=== PATIENT | female | born 1940 | race African-American/Black ===

== ENCOUNTER 2018-09-25 12:11 | Inpatient (IN) ==
[2018-09-25] MEDS ORDERED: DUONEB (A & A) INH ONE (12:53)
--- NOTE | 2018-09-25 13:05 | PROVIDER DOCUMENTATION ---
HPI-General Adult - General Chief Complaint: Shortness of Breath Stated Complaint: LEGS SWOLLEN Time Seen by Provider: 09/25/18 12:31 Source: patient Allergies/Adverse Reactions: Patient Allergies Allergy/AdvReac Type Severity Reaction Status Date / Time No Known Allergies Allergy Verified 05/13/18 05:39 Home Medications: Home Medication List Medication Instructions Recorded Confirmed Last Taken Type Allopurinol 300 mg PO DAILY 03/22/12 05/13/18 05/12/18 07:30 History Carvedilol 25 mg PO DAILY 03/22/12 05/13/18 05/13/18 04:25 History Potassium Chloride 20 meq PO DAILY 03/22/12 05/05/18 05/12/18 07:30 History Albuterol Sulfate 1.25 mg IH PRN PRN 05/05/18 05/13/18 Unknown History Gabapentin 300 mg PO TID 05/05/18 05/13/18 05/12/18 07:30 History Insulin Glargine [Lantus] 26 unit SUBQ QHS 05/05/18 05/13/18 05/12/18 23:55 History Iron 18 mg PO DAILY 05/05/18 05/05/18 05/12/18 07:30 History Losartan Potassium 100 mg PO DAILY 05/05/18 05/05/18 05/12/18 07:30 History Meloxicam 7.5 mg PO DAILY 05/05/18 05/13/18 05/05/18 History Omeprazole 40 mg PO DAILY 05/05/18 05/05/18 05/12/18 07:30 History ROSUVAstatin [Crestor] 20 mg PO DAILY 05/05/18 05/05/18 05/12/18 07:30 History Torsemide 20 mg PO DAILY 05/05/18 05/05/18 05/12/18 07:30 History Cephalexin [Keflex] 500 mg PO Q8H #20 cap 08/07/18 Unknown Rx Methocarbamol [Robaxin-750] 750 mg PO BID PRN #20 tab 08/07/18 Unknown Rx - History of Present Illness -Gen Adult Nature of Presenting Problems: Patient is an 78 yobf who complains of bilateral lower leg edema and erythema "for a while"- treated with abx last week by pcp with no improvement in symptoms. Also c/o SOB "for a while". Reports productive cough x 2 days. Unknown if fever. Denies chest pain or any other symptoms. She is non-toxic in appearance. Review of Systems - Adult - REVIEW OF SYSTEMS - ADULT Constitutional: reports: no symptoms reported Eyes: reports: no symptoms reported Ears, Nose, Mouth & Throat: reports: no symptoms reported Cardiovascular: reports: see HPI, edema. denies: chest pain, palpitations, syncope Respiratory: reports: see HPI, cough, dyspnea on exertion, shortness of breath. denies: chronic cough, hemoptysis Gastrointestinal: reports: no symptoms reported. denies: abdominal pain, diarrhea, nausea, vomiting Genitourinary: reports: no symptoms reported Musculoskeletal: reports: no symptoms reported Integumentary: reports: see HPI, other (erythema- bilateral lower extremities) Neurological: reports: no symptoms reported Psychiatric: reports: no symptoms reported Endocrine: reports: no symptoms reported Hematologic/Lymphatic: reports: no symptoms reported Allergic/Immunologic: reports: no symptoms reported All Other Systems: Reviewed and Negative Past History - Adult - PAST MEDICAL HISTORY-ADULT Review of Records: reports: Nursing Assessment Review, Medications Reviewed, Social history reviewed & non-contributory. Major Childhood Illnesses: reports: denies history Cardiovascular: reports: HTN, hyperlipidemia Respiratory: reports: asthma Obstetrical/Gynecological: reports: denies history Genitourinary: reports: denies history Neurological: reports: denies history Endocrine/Immune: reports: Diabetes Diabetes controlled by:: Insulin Dependent - PRIOR SURGERIES/PROCEDURES Surgical/Procedure History: reports: reviewed, not pertinent - FAMILY HISTORY Family History: reviewed, not pertinent - SOCIAL HISTORY Smoking: quit greater than 1 year Physical Exam-General - PHYSICAL EXAM-ADULT Initial Vital Signs Reviewed: Yes - CONSTITUTIONAL General Appearance: alert, no apparent distress. negative: lethargic, slow to respond - EYES Eyes: PERRL/EOMI, pink conjunctivae - HEAD, EARS, NOSE, MOUTH & THROAT HENMT: normocephalic/atraumatic, moist mucous membranes - NECK Neck: non-tender, full range of motion, supple, normal inspection - RESPIRATORY Respiratory: chest non-tender, no pleuratic chest pain, no respiratory distress, no accessory muscle use, wheezing (Diffuse expiratory) - CARDIOVASCULAR Cardiovascular: normal peripheral pulses, regular rate, rhythm, no gallop, no murmur, other (3+ pitting edema noted to bilateral lower extremities) - GASTROINTESTINAL (ABDOMEN) Abdominal Exam: normal bowel sounds, non tender, soft - MUSCULOSKELETAL Back Exam: normal inspection Extremity: normal range of motion, no calf tenderness, pelvis stable, erythema ( Bilateral lower legs), pedal edema. negative: pulse deficit, slow capillary refill - SKIN Integumentary: normal color, warm/dry. negative: cyanosis, diaphoresis, jaundice, mottled, pallor - NEUROLOGIC Neurologic: grossly normal, no motor/sensory deficits - PSYCHIATRIC Psych/Mental Status: normal mood/affect, normal thought content, normal thought process, oriented x 3 Progress - PLAN OF CARE/RESULTS Progress/Plan/Lab Results: Vital Signs - 8 hr 09/25/18 12:23 Temperature 97.9 F Pulse Rate 134 H Respiratory Rate 18 Blood Pressure 122/63 O2 Sat by Pulse Oximetry 96 Orders Category Date Time Status Cardiac Monitoring DIRECTED Care 09/25/18 12:52 Active Cardiac Monitoring DIRECTED Care 09/25/18 12:53 Active IV Insertion ORDERED Care 09/25/18 12:52 Active Notify MD of + Sepsis Screen NOW Care 09/25/18 12:52 Active Notify Physician As Ordered Care 09/25/18 12:52 Active CHEST-1 VIEW [RAD] Stat Exams 09/25/18 12:53 Ordered BLOOD CULTURE [BLDCUL] Stat Lab 09/25/18 12:52 Uncollected CBC WITH DIFF [HEME] Stat Lab 09/25/18 12:52 Uncollected CK PROFILE [SP CHEM] Stat Lab 09/25/18 12:52 Uncollected COMPREHENSIVE METABOLIC PANEL [CHEM] Stat Lab 09/25/18 12:52 Uncollected LACTATE, PLASMA [CHEM] Q3H Lab 09/25/18 13:00 Uncollected LACTATE, PLASMA [CHEM] Q3H Lab 09/25/18 16:00 Uncollected LACTATE, PLASMA [CHEM] Q3H Lab 09/25/18 19:00 Uncollected MAGNESIUM [CHEM] Stat Lab 09/25/18 12:52 Uncollected PRO B-NATRIURETIC PEPTIDE Stat Lab 09/25/18 12:53 Uncollected PROTIME WITH INR [COAG] Stat Lab 09/25/18 12:52 Uncollected PTT [COAG] Stat Lab 09/25/18 12:52 Uncollected TROPONIN T Stat Lab 09/25/18 12:52 Uncollected URINALYSIS W/POSS RFLX CULT [URINALYSIS] Stat Lab 09/25/18 12:52 Uncollected Albuterol 2.5MG/Ipratrop 0.5MG [Duoneb (A & A)] Med 09/25/18 12:53 Discontinued 3 ml INH NOW ONE Aerosol Treatments Routine Oth 09/25/18 12:53 Active Aerosol Treatments Stat Oth 09/25/18 12:53 Active Oxygen Device Stat Oth 09/25/18 12:52 Active EKG [EKG] Stat Ther 09/25/18 12:53 Ordered 1452- Dr. Bush paged. Pt states she is feeling moderately better after DuoNeb. Spoke with Dr. Bush who is aware of admission plan and is in agreement- md has no further recommendations. 1456- Admitting HPS paged. Pt in agreement with admission plan Result Diagrams: 09/25/18 13:24 09/25/18 13:24 - EKG 1 Time of EKG reading by physician:: 12:33 EKG Read and Signed by:: Samuel Li EKG Interpretation (*Must complete 3 of following elements*): Normal Rate: 84 Rhythm: NSR QRS: normal ST Wave: normal - XRAY 1 XRAY Study: Chest (IMPRESSION: Negative exam. Electronically signed by Hakan Pedersen 09/25/2018 1:20 PM) - CONSULTS/PCP/HOSPITALIST Notification #1 *Consult/PCP/Hospitalist*: FREDERIC Benjamin [employer] PROGRAMMER Time Discussed: 15:03 Reason/Comments: admission- SOB, elevated d-dimer Consult Disposition: Admit Departure - Departure Date of Disposition Decision: 09/25/18 Time of Disposition Decision: 15:05 DIAGNOSIS: SOB (shortness of breath), Elevated d-dimer Disposition: ADMITTED INPATIENT 09 Certified Medical Emergency: Emergent Condition: Serious Referrals and Follow-Ups: Mahnaz Cummings CRNP [NON-STAFF PROVIDER] - - Critical Care Note This patient required my direct & personal management of CC.: No Attestation - Physician/ KIM Attestation Patient care was provided by Advanced Practice Provider:: Yes Advanced Practice Provider:: Rani Perdomo Advanced Practice Provider documentation review:: The Mid-level provider documentation, treatment plan and medical decision making was reviewed by the physician who agrees with all treatment and medical decision making by the MLP. The physician spent face to face time with patient:: No Advanced Practice Provider documentation review:: Supervising physician onsite and consulted in the evaluation and care of this patient. The physician did not have a face to face encounter with the patient.
--- NOTE | 2018-09-25 13:22 | Diag Imaging Result Doc PS360 ---
CHEST-1 VIEW - 09/25/2018 INDICATION: cough, SOB COMPARISON: 08/07/2018 FINDINGS: The lungs are normally expanded and clear. Heart size and mediastinal contours are normal. No pneumothorax or pleural effusion. IMPRESSION: Negative exam. Electronically signed by Hakan Pedersen 09/25/2018 1:20 PM
--- NOTE | 2018-09-25 13:37 | EKG Report ---
Test Performed on : 09/25/2018 12:30:17 PM Test Reason : SOB Blood Pressure : / mmHG Vent. Rate : 084 BPM Atrial Rate : 084 BPM P-R Int : 194 ms QRS Dur : 068 ms QT Int : 402 ms P-R-T Axes : 065 027 056 degrees QTc Int : 475 ms Normal sinus rhythm. Normal ECG When compared with ECG of 05-MAY-2018 11:29, No significant change was found Unconfirmed Result
[2018-09-25 13:50] LABS: BASO# 0.01 X1000 (0.0-0.2); BASO% 0.1 % (0.0-0.8); EOS# 0.25 X1000 (0.0-0.7); HEMATOCRIT 34.5 % (37.0-47.0); HEMOGLOBIN 10.4 g/dL (12.0-16.0); IMM GRAN# 0.02 X1000 (0.0-0.04); IMM GRAN% 0.2 % (0.0-0.5); LYMPH# 1.62 X1000 (1.2-3.4); LYMPH% 19.7 % (20.5-51.1); MCH 27.2 PG (27-31); MCHC 30.1 g/dL (33-37); MCV 90.3 FL (81-99); MONO# 0.48 X1000 (0.11-0.59); MONO% 5.8 % (1.7-9.3); MPV 9.2 FL (7.4-10.4); NEUT# 5.83 X1000 (1.4-6.5); NEUT% 71.2 % (42.2-75.2); PLT 255 X1000 (130-400); RBC 3.82 XMIL (4.2-5.4); RDW 15.7 % (11.5-14.5); WBC 8.21 X1000 (4.8-10.8)
[2018-09-25 13:56] LABS: INR 1.09; PTT 32.1 Seconds (22.3-41.8)
[2018-09-25 14:15] LABS: ALB/GLOB RATIO 1.1; ALBUMIN 3.4 g/dL (3.5-5.0); CALCIUM 8.4 mg/dL (8.8-10.2); MAGNESIUM 2.2 mg/dL (1.5-2.7); POTASSIUM 4.4 mmol/L (3.5-5.1); TOTAL BILIRUBIN 0.33 mg/dL (0.20-1.00); TOTAL PROTEIN 6.5 g/dL (6.3-8.3)
[2018-09-25 14:39] LABS: URINE SOURCE CLEAN CATCH
[2018-09-25 14:41] LABS: BILIRUBIN URINE NEGATIVE (NEGATIVE); BLOOD URINE NEGATIVE (NEGATIVE); COLOR STRAW; GLUCOSE URINE NEGATIVE (NEGATIVE); KETONE URINE NEGATIVE (NEGATIVE); LEUKOCYTES URINE TRACE (NEGATIVE); NITRITE URINE NEGATIVE (NEGATIVE); PH URINE 5.5; PROTEIN URINE TRACE mg/dL (NEGATIVE); TURBIDITY URINE CLEAR (CLEAR); UR EPITHELIAL CELLS <10 /HPF (<10); URINE BACTERIA NEGATIVE /HPF; URINE RBC <10 /HPF (<10); URINE WBC <10 /HPF (<10); UROBILINOGEN URINE NORMAL (NORMAL)
[2018-09-25] MEDS ORDERED: CLINDAMYCIN 600 MG/NS 600 MG/50 ML IVPB IV ONE (14:55)
[2018-09-25 15:37] LABS: BLOOD TYPE ARTERIAL; HCO3-(ACT) 27.6 mmoll (20.0-26.0); PO2(98.6) 56 mmHg (60-100); SAMPLE BLOOD; pH(98.6) 7.38 (7.35-7.45)
[2018-09-25 15:38] LABS: ALLEN TEST YES; BE 3.8 mmoll (-3.0-3.0); METHB 0.9 % (0.0-1.5); O2(CT) 18.8 mL/dL (15.0-23.0); SAO2 90.3 % (95.0-100.0); THB 15.2 g/dL (11.5-17.4)
[2018-09-25 15:40] LABS: MODALITY ROOM AIR; O2HB 88.1 % (95.0-99.0); PCO2(98.6) 51 mmHg (35-45)
[2018-09-25] MEDS ORDERED: SOLU-MEDROL IV ONE (15:47)
[2018-09-25] MEDS ORDERED: TYLENOL PO PRN (16:04)
[2018-09-25] MEDS ORDERED: ZOFRAN IV PRN (16:04)
[2018-09-25] MEDS: HUMULIN R SUBQ SCH ×2 (16:04→22:29)
[2018-09-25] MEDS: ROCEPHIN 1 GM in NS 50 ML IV SCH (16:43)
--- NOTE | 2018-09-25 17:48 | Diag Imaging Result Doc PS360 ---
EXAM: LUNG SCAN / VQ 09/25/2018 HISTORY: SOB, elevated d-dimer TECHNIQUE: Ventilation/perfusion lung scan, 41.7 mCi of technetium 99m DTPA aerosol for the ventilation portion and 6.2 mCi of technetium 99m MAA for the perfusion portion. COMMENT: There is no evidence of ventilation/perfusion mismatch. There is no evidence of absolute perfusion defect. IMPRESSION: Normal scan. Electronically signed by Hao Baker 09/25/2018 5:46 PM
[2018-09-25] MEDS ORDERED: VANCOMYCIN IV PER PHARMACY MISC SCH (18:00)
--- NOTE | 2018-09-25 19:10 | HISTORY AND PHYSICAL ---
PRIMARY CARE PROVIDER: Dr. Bush. CHIEF COMPLAINT: Shortness of breath and lower extremity pain and swelling. HISTORY OF PRESENT ILLNESS: Ms. Yas Alvarez is an 78-year-old female with a medical history of diabetes mellitus type 2, hypertension, asthma, gout, and possibly congestive heart failure - she did not mention it, but she does have a normal systolic ejection fraction of 70% to 75% with hyperdynamic left ventricular systolic function and mild LVH. She has some mild pulmonary hypertension with a pulmonic pressure of 46 mmHg systolic and this was 10/03/2017. She now presents with having several months of shortness of breath. Apparently after a coughing spell this morning it has worsened. She was wheezing. She presented to Dr. Bush's office, who has been treating her for bilateral lower extremity cellulitis over the last two weeks. Apparently the cellulitis has also been going on for about six months, according to her, with more swelling and worsened over the last two weeks. He ordered a bilateral lower extremity venous ultrasound and report from him to the ER care provider there was no DVT. She had a VQ scan due to chronic kidney disease that she has, which was negative for any type of pulmonary emboli, but she is requiring oxygen and she has a history of asthma, so will admit her and consult Pulmonology. Start her on nebulizers and treat her as if it was a COPD exacerbation. Apparently she did smoke quite a bit since the age of 10, but she claims to have quit over 20 years ago. PAST MEDICAL HISTORY: 1. Diabetes mellitus type 2. 2. Hypertension. 3. Asthma. 4. CKD, stage 3. 5. Mild pulmonary hypertension, per echo from last year, September 2017, with a pulmonary systolic reading of 46 mmHg. 6. Gout. 7. Neuropathy. PAST SURGICAL HISTORY: 1. Bilateral tubal ligation. 2. Sinus surgery. 3. Colonoscopy in 2017. 4. Left breast lumpectomy. SOCIAL HISTORY: Quit smoking over 20 years ago but prior to that smoked less than a half pack per day and she actually started smoking around the age of 10. Apparently, her father would let her light his cigarettes for him. She quit alcohol over 20 years ago as well. Denies any illicit drug use. FAMILY HISTORY: No medical history on mother's side. Hypertension and poor perfusion or circulation in the legs of her father. ALLERGIES: No known drug allergies. HOME MEDICATIONS: 1. Lantus 26 units subcutaneously nightly. 2. Albuterol inhaled p.r.n. 3. Allopurinol 300 mg p.o. daily. 4. Coreg 25 mg p.o. twice daily. 5. Neurontin 300 mg p.o. t.i.d. 6. Insulin Lispro 10 units subcutaneously twice a day. 7. Losartan 100 mg p.o. daily. 8. Carafate 1 gram p.o. before meals and at night. 9. Torsemide 20 mg daily. REVIEW OF SYSTEMS: A 14-point review of systems are complete and all are negative except for those mentioned in the above HPI. PHYSICAL EXAMINATION: VITAL SIGNS: Temperature 97.9, heart rate 81, respiratory rate 22, blood pressure 123/70, 02 saturation 96% on 2L nasal cannula. GENERAL: Ms. Yas Alvarez is an 78-year-old female. She is in no acute distress. She is able to answer questions appropriately. HEENT: Atraumatic, normocephalic. Pupils equal, round, and reactive to light. Extraocular movements intact. Mucous membranes are moist. NECK: Trachea midline. CARDIOVASCULAR: S1 and S2, regular rate and rhythm. No rubs, gallops, or murmurs. Trace lower extremity edema, +2 dorsalis and radial pulses. Negative for JVD or carotid bruits. PULMONARY: Mild expiratory wheezes noted throughout but no accessory muscle use or work of breathing noted at this time, but she states this is quite improved from when she first came in. Tolerating nasal cannula, two liters. GI: Soft, nontender, nondistended. Positive bowel sounds x4. EXTREMITIES: Moves all extremities equally. Decreased range of motion of the lower extremities. SKIN: Warm, dry and intact except for bilateral lower extremities below the knee down to the lower stallings, no open wounds but appears she has bilateral lower extremity cellulitis possibly. It is red and warm to touch and painful. LABORATORY DATA: White blood cells 8000, hemoglobin 10, hematocrit 34, platelet count 255. INR is 1.09. PTT 32.1. D dimer is 2.11. ABGs: pH 7.38, pCO2 51, pO2 56, bicarb 26, base excess 3.8, saturation 90% on room air. Lactate 0.9. Sodium 143, potassium 4.4, BUN 20, creatinine 2.0, glucose 94. Calcium 8.4, magnesium 2.2, bilirubin 0.33. AST 15, ALT 6. CK 122. Troponin 0.031. proBNP 343. Albumin 3.4. Serum lactate 0.9. Urinalysis: Trace protein, trace leukocytes. IMAGING: Chest x-ray: Negative exam. Lung VQ scan: Normal scan. There was no mismatch or pulmonary emboli. EKG shows normal sinus rhythm, rate 84, QTc is 475. ASSESSMENT/PLAN: 1. Hypoxemic, hypercarbic respiratory failure. Likely she has chronic obstructive pulmonary disease and this is a mild exacerbation. So, will treat her chronic obstructive pulmonary disease protocol order set. She will get bronchodilators, steroids, and antibiotic for coverage - will do Rocephin. Oxygen as needed. She is requiring about two liters at this time and she feels like she is breathing better. 2. Chronic lower extremity either venous stasis or cellulitis, but it has been going on for six months, according to her. It has just worsened over the last two weeks. She has been treated by Dr. Bush for it. She was given clindamycin in the emergency room. Will just do vancomycin until blood cultures come back or until the cellulitis improves. 3. There is elevated D dimer but she is negative for deep venous thrombosis and negative for pulmonary emboli. 4. Chronic kidney disease, stage 3. Maybe a little acute kidney, the creatinine is up from 1.5 to 2.0 over the last month. Will monitor it. 5. Pulmonary hypertension. She is getting a new echo performed this admission. So, she is on torsemide at home. She is also on Coreg, which we will continue. 6. Deep venous thrombosis prophylaxis. Will hold off on any blood thinners now. 7. Diabetes mellitus, type 2. Will do patterned blood glucoses and sliding scale insulin. 8. Gout. Continue her Allopurinol. 9. Neuropathy. Continue Neurontin. Dictated by JESSICA Qiuntero for Martell Khanna MD cc: JESSICA Quintero MD
[2018-09-25] MEDS: PULMICORT INH SCH (19:45)
[2018-09-25] MEDS: DUONEB (A & A) INH SCH ×2 (19:45→23:40)
[2018-09-25] MEDS ORDERED: VANCOMYCIN 2,000 MG in NS 500 ML IV ONE (20:00)
--- NOTE | 2018-09-25 20:58 | Diag Imaging Result Doc PS360 ---
EXAM: CT THORAX W/O CONTRAST 09/25/2018 HISTORY: Dyspnea with hypoxemia TECHNIQUE: This exam was performed using automated exposure control, adjustment of mA or kV according to patient size, and/or use of iterative reconstruction technique. COMMENT: The thyroid gland is inhomogeneous and extends below the sternal notch. There are atherosclerotic calcifications in the thoracic aorta. There is no evidence of significant adenopathy. There are granulomata in the spleen. There is enlargement of the left adrenal gland which contains some calcifications. There are bilateral renal cysts. There are no abnormal fluid collections. There is some ill-defined opacity in the lower lobes particularly the posterior costophrenic sulcus of the right lower lobe. IMPRESSION: Minimal atelectasis versus pneumonia particularly in the right lower lobe. Electronically signed by Hao Baker 09/25/2018 8:56 PM
[2018-09-25] MEDS: SOLU-MEDROL IV SCH (22:27)
[2018-09-25] MEDS: LASIX IV SCH (22:28)
[2018-09-25] MEDS: COREG PO SCH (22:28)
[2018-09-25] MEDS: LANTUS INSULIN SUBQ SCH (22:28)
[2018-09-25] MEDS: CARAFATE PO SCH (22:29)
--- NOTE | 2018-09-26 00:32 | HISTORY AND PHYSICAL ---
ADDENDUM: HISTORY: Ms. Yas Alvarez was referred here by her primary care doctor (Dr. Bush) because of ongoing lower extremity swelling and progressively worsening shortness of breath. Ms. Alvarez is known to have diabetes, hypertension, diabetic neuropathy, and suspected obstructive sleep apnea from her history as well. Upon presenting to the emergency department, she was evaluated. She was found to be slightly hypoxemic. CURRENT PHYSICAL EXAMINATION: Blood pressure is 146/73, pulse of 80, respiration is 16, temperature is 98.5 degrees. Positive on her physical exam is lower extremities have about 3+ pedal edema. There are some changes that are consistent with stasis dermatopathy. The patient also has positive hepatojugular reflux. There is positive JVD. Chest air entry is bilaterally reduced. There are diffuse crackles, but I did not hear any rhonchi or wheezing. LABORATORIES: Laboratory data has also been reviewed. Hemoglobin is 10.4. ABG shows pCO2 of 51, pO2 is 56; this was on room air. Creatinine is 2.0. The patient seems to have a baseline of 1.5. Her proBNP is 343. ASSESSMENT: 1. Fluid overload, presumably heart failure. It appears to be more of a right heart failure. We will be pending the echocardiogram to assess the EF. 2. Acute hypoxemic respiratory failure and acute on chronic hypercarbic respiratory failure. We will use BiPAP on Ms. Alvarez mainly at night to help correct some of the gas exchange as well as ventilatory abnormalities. 3. Acute on chronic renal failure. We will try and diurese Ms. Alvarez to see if this is all related to cardiorenal syndrome. Will also avoid any nephrotoxins 4. Morbid obesity with body mass index of 40.9. 5. History of asthma. However, upon talking with Ms. Alvarez, it appears that this is actually a chronic obstructive pulmonary disease in possible exacerbation. The patient is being treated accordingly. 6. Suspected sleep apnea with obesity hypoventilation syndrome. The patient is advised to follow up with Pulmonary Medicine on an outpatient basis for sleep studies and treatment accordingly. PLAN: Ms. Alvarez will be admitted to the medical floor under telemonitoring. We will get a CT scan of the lungs without contrast to have a better view of the lung anatomy. We will also start her on IV Lasix and re-evaluate her in the morning. I will restart her back on her home medications and repeat her numbers for tomorrow. Please refer to the details of the history and physical that has been dictated by the CRIBBING SETTER. cc: Martell Khanna MD MTDD
[2018-09-26] MEDS: DUONEB (A & A) INH SCH ×6 (03:18→20:06)
[2018-09-26 05:17] LABS: ALLEN TEST YES; BE 0.9 mmoll (-3.0-3.0); BLOOD TYPE ARTERIAL; HCO3-(ACT) 25.5 mmoll (20.0-26.0); METHB 0.8 % (0.0-1.5); O2(CT) 14.3 mL/dL (15.0-23.0); O2HB 90.5 % (95.0-99.0); PCO2(98.6) 46 mmHg (35-45); PO2(98.6) 57 mmHg (60-100); SAMPLE BLOOD; SAO2 92.5 % (95.0-100.0); THB 11.2 g/dL (11.5-17.4); pH(98.6) 7.37 (7.35-7.45)
[2018-09-26 05:18] LABS: MODALITY CANNULA
[2018-09-26] MEDS: HUMULIN R SUBQ SCH ×4 (06:12→21:35)
[2018-09-26] MEDS: SOLU-MEDROL IV SCH ×2 (06:12→11:53)
[2018-09-26] MEDS: CARAFATE PO SCH ×4 (06:13→21:37)
[2018-09-26 08:02] LABS: HEMATOCRIT 34.3 % (37.0-47.0); HEMOGLOBIN 10.5 g/dL (12.0-16.0); IMM GRAN# 0.02 X1000 (0.0-0.04); IMM GRAN% 0.3 % (0.0-0.5); LYMPH# 0.71 X1000 (1.2-3.4); LYMPH% 9.4 % (20.5-51.1); MCH 27.4 PG (27-31); MCHC 30.6 g/dL (33-37); MCV 89.6 FL (81-99); MONO# 0.04 X1000 (0.11-0.59); MONO% 0.5 % (1.7-9.3); MPV 9.8 FL (7.4-10.4); NEUT# 6.77 X1000 (1.4-6.5); NEUT% 89.8 % (42.2-75.2); PLT 264 X1000 (130-400); RBC 3.83 XMIL (4.2-5.4); RDW 15.2 % (11.5-14.5); WBC 7.54 X1000 (4.8-10.8)
[2018-09-26 08:04] LABS: IRON SATURATION 14 %; TIBC 204 ug/dL; TOTAL IRON 28 ug/dL (49-151); UNBOUND IRON 176 ug/dL (112-346)
[2018-09-26 08:09] LABS: ALB/GLOB RATIO 0.9; ALBUMIN 3.4 g/dL (3.5-5.0); CREATININE 1.9 mg/dL (0.5-0.9); POTASSIUM 3.9 mmol/L (3.5-5.1); TOTAL BILIRUBIN 0.28 mg/dL (0.20-1.00)
[2018-09-26] MEDS: PULMICORT INH SCH ×2 (08:11→20:06)
[2018-09-26 08:20] LABS: BANDS 2 % (0-1); LYMPHS 10 % (21-51); SEGS 88 % (42-75)
[2018-09-26 08:34] LABS: FERRITIN 405 ng/mL (13-150)
[2018-09-26] MEDS ORDERED: DEMADEX PO SCH (09:00)
[2018-09-26] MEDS: COREG PO SCH ×2 (09:09→21:37)
[2018-09-26] MEDS: ZYLOPRIM PO SCH (09:09)
[2018-09-26] MEDS: COZAAR PO SCH (09:09)
[2018-09-26] MEDS: NEURONTIN PO SCH ×3 (09:10→21:37)
[2018-09-26] MEDS: LASIX IV SCH ×2 (09:10→21:37)
--- NOTE | 2018-09-26 13:13 | PROGRESS NOTE ---
DATE: 09/26/2018 SUBJECTIVE: The patient this morning was sitting up at the edge of the bed. She was taking her meals. She refers to be feeling a lot better. OBJECTIVE: Vital signs: Blood pressure is 158/67, pulse 88, respirations 16 and temperature 97.5 degrees. Patient was saturating 100% on 2 L. General: Ms. Alvarez is an 78-year-old female. She was sitting up at the edge of the bed in no distress. HEENT: Mucosa is pink and moist. Anicteric. Acyanotic. Neck: Supple. There is still positive JVD. Chest: Air entry is bilaterally reduced. A few crackles posteriorly but no wheezing. Cardiovascular: Regular rate and rhythm. No murmurs. Abdomen: Soft and nontender. Bowel sounds present. Extremities: About 2+ pedal edema. RADAR MECHANIC: Patient is awake, alert, and oriented. There is no focal neurological deficit. LABORATORY DATA: WBC is 7.58, hemoglobin is 10.5, and platelet count of 265,000. ABG- pH 7.37, pCO2 is 46, and PO2 is 57. Creatinine is down to 1.9. No urine output has been charted. MEDICATIONS: Patient's current medicines have all been reviewed. So far, urine culture is negative. Blood culture still pending. ASSESSMENT: 1. Fluid overload, presumably from congestive heart failure with preserved ejection fraction/predominantly right heart failure. We are still pending an echocardiogram. 2. Acute hypoxemic respiratory failure improving. 3. Acute on chronic hypercarbic respiratory failure improved. 4. Acute on chronic renal failure. Creatinine is on downward trend. 5. Possible COPD/asthma exacerbation. 6. Suspected obstructive sleep apnea with obesity hypoventilation syndrome. 7. Right lower lobe pneumonia. Patient is on IV antibiotics. In general, Ms. Alvarez refers to be feeling a lot better. Congestive symptoms are improving. We are still pending echocardiogram. A CT scan of the chest yesterday shows some minimal atelectasis versus pneumonia in the right lower lobe. Patient has been currently treated for pneumonia, and also COPD exacerbation on antibiotics. We will continue with the current management for another 24 hours and re- evaluate her. cc: MD HUEY Woodruff
--- NOTE | 2018-09-26 14:47 | ECHO REPORT ---
ORDER DATE: 09/25/2018 INDICATION: Shortness of breath. Lower extremity swelling. FINDINGS: This is a very difficult study with poor resolution of the endocardial borders. 1. The right atrium appears normal in size. 2. Trace tricuspid regurgitation. RV systolic pressure of 60 suggesting pulmonary hypertension. 3. Normal RV systolic function. Very poor visualization of the right heart. 4. No significant pulmonic insufficiency. 5. Normal left atrial size with a dimension of 3.2 cm. 6. No mitral valve prolapse. Trace mitral regurgitation. 7. Normal LV size, end-diastolic dimension of 3.7. Normal wall thicknesses with a posterior and interventricular septal thickness of 1.1 and 0.9 cm respectively. Hyperdynamic LV systolic function with an estimated EF greater than 70%. On Valsalva though, there does appear to be some evidence of an increased LV outflow tract gradient of 73 mmHg. Due to the poor 2- dimensional images, it is very difficult to evaluate the left ventricular outflow tract with 2- dimensional images. In addition, I was unable to see if there is any systolic anterior motion of the mitral leaflets. 8. The aortic valve does not appear to have any significant stenosis or insufficiency based on Doppler evaluation. There are poor 2-dimensional images of the aortic valve. 9. The aorta appears normal in visualized segments. 10. No pericardial effusion seen. cc: MD Cassidy Dan CRNP
[2018-09-26] MEDS: ROCEPHIN 1 GM in NS 50 ML IV SCH (16:22)
[2018-09-26] MEDS: LANTUS INSULIN SUBQ SCH (21:36)
--- NOTE | 2018-09-26 22:59 | CONSULTATION ---
DATE OF CONSULTATION: 09/26/2018 REQUESTING PROVIDER: JESSICA Quintero. REASON FOR CONSULTATION: Hypoxic hypercapnic respiratory failure. HISTORY OF PRESENT ILLNESS: This is an 78-year-old female with a medical history of morbid obesity, asthma, pulmonary hypertension, hypertension, diabetes mellitus type 2, chronic kidney disease, gastroesophageal reflux disease, arthritis, neuropathy, and polymyalgia rheumatica. She presented to the ER yesterday with worsening shortness of breath and bilateral lower extremity edema for several months. Initial workup in the ER revealed hypoxic hypercapnic respiratory failure, chronic lower extremity venous stasis versus cellulitis, and elevated D-dimer. She has been admitted to the medical floor for further evaluation and management. The patient currently is lying in bed in no acute distress. She appears sleepy and keeps her eyes closed most of the time during my assessment. She states that she has been treated with cellulitis by her PCP for 2 weeks. She reports worsening dyspnea on exertion, and wheezing. It gets so severe that she even cannot take a shower. She also has intermittent mild cough, which is dry most of time, but becomes productive in the last 2 days with clear phlegm. She reports witnessed snoring, daytime sleepiness, and tiredness. She reports no fever, morning headache, insomnia, paroxysmal nocturnal dyspnea, chest pain, or palpitation. PAST MEDICAL AND SURGICAL HISTORY: 1. Morbid obesity. Current BMI 40.9. 2. Asthma. 3. Pulmonary hypertension. 4. Hypertension. 5. Diabetes mellitus type 2. 6. Chronic kidney disease stage 3. 7. Gastroesophageal reflux disease. 8. Arthritis. 9. Neuropathy. 10. Polymyalgia rheumatica, status post left temporal artery biopsy on 05/13/2018. 11. Bilateral tubal ligation. 12. Sinus surgery. 13. Colonoscopy and colon polyp removal. 14. Bilateral cataract surgery. 15. Left breast biopsy on 09/16/2012. SOCIAL HISTORY: The patient lives at home with her family. She walks with a cane or walker at home. She was a former smoker, starting smoking at 38-year-old and quit over 20 years ago. She used to smoke maximally up to 2.5 packs per day. She has no alcohol or illicit drug use. FAMILY HISTORY: Positive for hypertension. ALLERGIES: No known drug allergies. REVIEW OF SYSTEMS: A 10-point review of systems was conducted and the pertinent is listed within the HPI, otherwise noncontributory. PHYSICAL EXAMINATION: Vital Signs: Temperature 97.5 degrees, blood pressure 151/79, pulse 90, respiratory rate 14, oxygen saturation 91% on nasal cannula at 2 L. General: Morbidly obese, sleepy, lying in bed with no acute distress noted. HEENT: Atraumatic. Trachea Midline. Mucosa pink and moist. Respiratory: Even and unlabored, symmetrical excursion. Auscultation reveals diminished breathing sounds bibasilarly. Otherwise clear. No wheezing noted. Cardiovascular: Regular rate and rhythm. Gastrointestinal: Bowel sounds normoactive in all 4 quadrants. Soft, nontender, and obese. Extremities: Bilateral lower extremity discoloration, warm and painful on touch with pitting edema 1+. No clubbing, no cyanosis. Neurologic: Alert and oriented x3. Speech fluent. Follows commands. LAB DATA: White blood cells 7.52, hemoglobin 10.5, hematocrit 34.3, platelet 264,000. Sodium 139, potassium 3.9, chloride 99, carbon dioxide 27, BUN 23, creatinine 1.9. Glucose 233. ProBNP 554. ABG, pH 7.37, pCO2 of 46, PO2 of 57, HCO3 of 25.5, base excess 0.9, and oxyhemoglobin 90.5. IMAGING DATA: Chest CT without contrast on 09/25/2018 showed minimal atelectasis versus pneumonia, particularly in the right lower lobe. ASSESSMENT: This is an 78-year-old female with a medical history of morbid obesity, asthma, pulmonary hypertension, hypertension, diabetes mellitus type 2, chronic kidney disease, gastroesophageal reflux disease, arthritis, neuropathy, and polymyalgia rheumatica. She has been admitted to the medical floor with hypoxic hypercapnic respiratory failure, chronic lower extremity venous stasis versus cellulitis, and elevated D-dimer. 1. Acute hypoxic respiratory failure, currently on nasal cannula at 2 L. PO2 this morning still low at 57. 2. Acute hypercapnic respiratory failure, improving. PCO2 this morning of 46. The patient states that she did not use BiPAP last night. 3. Minimal atelectasis versus pneumonia. 4. Morbid obesity. 5. Probable sleep apnea. 6. Probable chronic obstructive pulmonary disease with exacerbation. 7. Elevated D-dimer. Ventilation/perfusion lung scan to rule out pulmonary embolism on 09/25/2018. 8. Acute on chronic kidney disease. 9. Bilateral lower extremity chronic venous stasis versus cellulitis. PLAN: 1. Continue supplemental oxygen as needed, continue BiPAP as needed. 2. Continue antibiotics, steroids, and bronchodilators. 3. The patient would benefit from weight loss. 4. Will follow up the patient after discharge and schedule outpatient sleep study at that time. 5. Continue GI and DVT prophylaxis. 6. Further recommendation pending hospital course. Thank you for the courtesy of this consult. Dictated by JESSICA Schaeffer for Greg Mccain MD cc: JESSICA Schaeffer MD [facility]
[2018-09-27] MEDS: SOLU-MEDROL IV SCH ×2 (00:41→16:53)
[2018-09-27] MEDS: DUONEB (A & A) INH SCH ×6 (04:08→23:43)
[2018-09-27] MEDS: HUMULIN R SUBQ SCH ×4 (06:14→21:21)
[2018-09-27] MEDS: CARAFATE PO SCH ×4 (06:14→21:22)
[2018-09-27] MEDS: PULMICORT INH SCH ×2 (07:55→20:08)
[2018-09-27 08:00] LABS: ALBUMIN 3.4 g/dL (3.5-5.0); MAGNESIUM 2.1 mg/dL (1.5-2.7); POTASSIUM 3.9 mmol/L (3.5-5.1)
[2018-09-27] MEDS ORDERED: ALDACTONE PO SCH (09:00)
[2018-09-27] MEDS ORDERED: DEMADEX PO SCH (09:00)
[2018-09-27] MEDS: ZYLOPRIM PO SCH (10:58)
[2018-09-27] MEDS: CRESTOR PO SCH (10:58)
[2018-09-27] MEDS: COREG PO SCH ×2 (10:58→21:22)
[2018-09-27] MEDS: COZAAR PO SCH (10:58)
[2018-09-27] MEDS: NEURONTIN PO SCH ×3 (10:58→21:22)
[2018-09-27] MEDS: LASIX IV SCH ×2 (10:59→21:22)
[2018-09-27] MEDS: HUMALOG SUBQ SCH ×3 (11:00→16:51)
--- NOTE | 2018-09-27 11:04 | Diag Imaging Result Doc PS360 ---
EXAM: CHEST-2 VIEWS HISTORY: chf/ pneumonia TECHNIQUE: Chest two views COMPARISON: 09/25/2018 FINDINGS: The lungs are well expanded. The heart is not enlarged. The vessels are not distended. Small infiltrate or atelectasis has developed in the mid right lung. No pleural effusions. IMPRESSION: Small infiltrate or atelectasis in the mid right lung. Electronically signed by Oni Adame 09/27/2018 11:02 AM
--- NOTE | 2018-09-27 15:47 | PROGRESS NOTE ---
DATE: 09/27/2018 SUBJECTIVE: This morning, Ms. Alvarez refers to be feeling fairly the same, but she is having some wheezing. OBJECTIVE: Vital signs: Blood pressure is 124/65, pulse of 80 respiration is 19, temperature is 97.8 degrees. The patient is saturating between 100% and 97% on 3 L. General: On general exam, Ms. Alvarez is an 78-year-old female. She is in bed. She is not in any distress. HEENT: Mucosa is pink and moist. Anicteric. Acyanotic. Neck: Supple. There is still positive JVD. Chest: Air entry is bilaterally reduced. There is wheezing in both lung ignacio. There is also posterior crackles. Cardiovascular: Regular rate and rhythm. No murmurs, no rubs, no gallops. GI: Abdomen is soft, nontender. Bowel sounds present. Extremities: About 2+ pedal edema with also changes consistent with stasis dermatopathy. SUPERVISOR DRYING AND SOFTENING: Patient is awake, alert and oriented. LABORATORY DATA: Chemistry is reviewed. The patient's creatinine is 2.0. Glucose is remarkably elevated at 325. ProBNP is also up to 1352. ASSESSMENT: 1. Fluid overload secondary to congestive heart failure with preserved ejection fraction, predominantly right heart failure. 2. Pulmonary hypertension with right ventricle systolic pressure of 60 mmHg. 3. Acute hypoxemic respiratory failure. This has improved with oxygen therapy. The patient is down to only 3 liters. 4. Acute on chronic hypercarbic respiratory failure, improved. 5. Acute on chronic renal failure, presumably with underlying cardiorenal syndrome. 6. Chronic obstructive pulmonary disease exacerbation. We will continue with the current standard of care, including antibiotics, bronchodilation therapy and steroids. Patient is being seen by Pulmonary Medicine as well. 7. Suspected obstructive sleep apnea with hypoventilation syndrome. The patient is advised to follow up with Pulmonary on outpatient basis. 8. Right lower lobe pneumonia. We will continue with intravenous antibiotics. 9. Morbid obesity with body mass index of 40.9. Weight loss has been advised. 10. Uncontrolled diabetes mellitus. We have made changes to the insulin regimen. PLAN: 1. So, this morning Ms. Alvarez refers to be having more wheezing. ProBNP is slightly elevated. We are going to continue with the IV diuretics. I have also added Aldactone to enhance the loop diuretic effect. 2. We will get a chest x-ray to follow up on the pneumonia and the lung findings. 3. We will continue to encourage Ms. Alvarez to use BiPAP at night. cc: Martell Khanna MD
[2018-09-27] MEDS: ROCEPHIN 1 GM in NS 50 ML IV SCH (16:54)
[2018-09-27] MEDS: ZYVOX PO SCH (18:36)
[2018-09-27] MEDS ORDERED: VANCOMYCIN 1,500 MG in NS 250 ML IV SCH (20:00)
[2018-09-27] MEDS ORDERED: LANTUS INSULIN SUBQ SCH (21:00)
[2018-09-28] MEDS: SOLU-MEDROL IV SCH ×2 (00:40→13:36)
[2018-09-28] MEDS: DUONEB (A & A) INH SCH ×6 (03:43→22:00)
[2018-09-28 05:31] LABS: ALLEN TEST YES; BE 2.4 mmoll (-3.0-3.0); BLOOD TYPE ARTERIAL; HCO3-(ACT) 26.8 mmoll (20.0-26.0); METHB 0.8 % (0.0-1.5); O2(CT) 14.7 mL/dL (15.0-23.0); O2HB 96.7 % (95.0-99.0); PCO2(98.6) 49 mmHg (35-45); PO2(98.6) 103 mmHg (60-100); SAMPLE BLOOD; SAO2 98.6 % (95.0-100.0); THB 10.7 g/dL (11.5-17.4); pH(98.6) 7.37 (7.35-7.45)
[2018-09-28 05:48] LABS: MODALITY BI PAP
[2018-09-28] MEDS: HUMULIN R SUBQ SCH ×4 (06:35→21:15)
[2018-09-28] MEDS: CARAFATE PO SCH ×4 (06:36→21:15)
[2018-09-28] MEDS: ZYVOX PO SCH ×2 (06:36→16:59)
[2018-09-28] MEDS ORDERED: PULMICORT ONE (07:38)
[2018-09-28 07:51] LABS: HEMATOCRIT 32.9 % (37.0-47.0); HEMOGLOBIN 10.3 g/dL (12.0-16.0); IMM GRAN# 0.03 X1000 (0.0-0.04); IMM GRAN% 0.3 % (0.0-0.5); LYMPH# 0.62 X1000 (1.2-3.4); LYMPH% 6.8 % (20.5-51.1); MCH 27.7 PG (27-31); MCHC 31.3 g/dL (33-37); MCV 88.4 FL (81-99); MONO# 0.13 X1000 (0.11-0.59); MONO% 1.4 % (1.7-9.3); NEUT# 8.28 X1000 (1.4-6.5); NEUT% 91.5 % (42.2-75.2); PLT 292 X1000 (130-400); RBC 3.72 XMIL (4.2-5.4); RDW 15.4 % (11.5-14.5); WBC 9.06 X1000 (4.8-10.8)
[2018-09-28] MEDS: PULMICORT INH SCH ×2 (07:54→19:50)
[2018-09-28 08:18] LABS: ALBUMIN 3.2 g/dL (3.5-5.0); CALCIUM 9.3 mg/dL (8.8-10.2); CREATININE 2.3 mg/dL (0.5-0.9); POTASSIUM 3.9 mmol/L (3.5-5.1); TOTAL BILIRUBIN 0.17 mg/dL (0.20-1.00); TOTAL PROTEIN 6.5 g/dL (6.3-8.3)
[2018-09-28] MEDS: ZYLOPRIM PO SCH (10:26)
[2018-09-28] MEDS: COREG PO SCH ×2 (10:26→21:15)
[2018-09-28] MEDS: NEURONTIN PO SCH ×3 (10:27→21:15)
[2018-09-28] MEDS: CRESTOR PO SCH (10:28)
[2018-09-28] MEDS: LANTUS INSULIN SUBQ SCH (10:35)
--- NOTE | 2018-09-28 10:54 | PROGRESS NOTE ---
DATE: 09/28/2018 SUBJECTIVE: This morning, Ms. Alvarez was sitting up in a chair. The son was also at the bedside at the time of the encounter. Ms. Alvarez refers to be doing a lot better. She said she used the BiPAP last night. She thought she did not tolerate it well. However, the son thought that she slept very well throughout the night. OBJECTIVE: Vital Signs: Blood pressure is 158/74, pulse of 75, respirations are 16, temperature 97.4 degrees, the patient was saturating about 95% on room air. General Examination: Ms. Alvarez is an 78-year-old, female. She is sitting up in the chair. She did not seem to be in any distress. HEENT: Mucosa is pink and moist. Anicteric. Acyanotic. Neck: Supple. Chest: Good air entry bilaterally. There was no wheezing today. A few crackles in the posterior lung ignacio. Cardiovascular: Regular rate and rhythm. No murmurs, no rubs, no gallops. GI: Abdomen is soft. Distended but nontender. Extremities: About 2+ pedal edema with chronic changes consistent with stasis dermatopathy. SCRAPER OPERATOR: The patient is awake, alert, and oriented. There was no focal neurological deficit. Laboratory Data: WBC is 9.06, hemoglobin is 10.3, platelet count of 292,000. ABG is also reviewed. PCO2 was 49, PO2 was 103. Chemistry is reviewed. Creatinine is 2.3 which is slightly elevated. ASSESSMENT: 1. Fluid overload on presentation secondary to congestive heart failure with preserved ejection fraction (predominantly right heart failure). The patient continues to make adequate urine. Clinically, she seems to be diuresing well. Her current weight is 230. Admission was 238. This is an 8 pound weight loss which we think is all from the diuresis. 2. Pulmonary hypertension with right ventricular systolic pressure of 60 mmHg noted. 3. Acute hypoxemic respiratory failure, improved with oxygen therapy. The patient might need oxygen upon discharge. 4. Acute on chronic hypercarbic respiratory failure, improved. 5. Chronic obstructive pulmonary disease in exacerbation, improving. The patient does not seem to have any more wheezing. She is currently on antibiotics, bronchodilation therapy, and steroids. Pulmonary medicine is on board. 6. Suspected obstructive sleep apnea with obesity hypoventilation syndrome. The patient is advised to follow up with sleep team and pulmonary on an outpatient basis. 7. Morbid obesity with a body mass index of 40.9. Weight loss has been advised. 8. Acute on chronic renal failure. Creatinine continues to creep up so I have discontinued the diuretic therapy for today as well as the losartan. We will try to avoid any nephrotoxin. 9. Hypertension. We have discontinued the losartan because of ongoing renal abnormality. We will start the patient on BiDil for better blood pressure control. 10. Uncontrolled diabetes mellitus. The patient is currently on insulin regimen. 11. Right lower lobe atelectasis versus pneumonia. Procalcitonin is remarkably low so we presume this is more of atelectasis. We have encouraged the patient to use incentive spirometer to help opening up the posterior lower alveoli. PLAN: In general, I think Ms. Alvarez seems to be doing a lot better. She is saturating well on very low levels of oxygen. She was sitting up this morning. She is getting physical therapy. We are going to repeat her x-rays tomorrow morning, repeat her renal function tests as well, and re- evaluate and see if she can be discharged. cc: Martell Khanna MD
[2018-09-28 11:00] LABS: BANDS 2 % (0-1); LYMPHS 2 % (21-51); SEGS 96 % (42-75)
[2018-09-28] MEDS: FLONASE NAS SCH (11:25)
[2018-09-28] MEDS: HUMALOG SUBQ SCH ×3 (11:26→16:44)
[2018-09-28] MEDS: BIDIL PO SCH ×3 (11:26→16:46)
[2018-09-28] MEDS: ROCEPHIN 1 GM in NS 50 ML IV SCH (16:45)
[2018-09-29] MEDS: SOLU-MEDROL IV SCH ×2 (00:31→14:34)
[2018-09-29] MEDS: DUONEB (A & A) INH SCH ×6 (03:40→22:50)
[2018-09-29 05:21] LABS: ALLEN TEST YES; BE 2.4 mmoll (-3.0-3.0); BLOOD TYPE ARTERIAL; HCO3-(ACT) 26.8 mmoll (20.0-26.0); METHB 1.3 % (0.0-1.5); O2(CT) 14.3 mL/dL (15.0-23.0); O2HB 96.2 % (95.0-99.0); PCO2(98.6) 49 mmHg (35-45); PO2(98.6) 97 mmHg (60-100); SAMPLE BLOOD; SAO2 98.5 % (95.0-100.0); THB 10.5 g/dL (11.5-17.4); pH(98.6) 7.37 (7.35-7.45)
[2018-09-29 05:22] LABS: MODALITY BI PAP
[2018-09-29] MEDS: ZYVOX PO SCH ×2 (06:36→17:04)
[2018-09-29] MEDS: CARAFATE PO SCH ×4 (06:36→21:22)
[2018-09-29] MEDS: HUMULIN R SUBQ SCH ×4 (06:37→21:22)
[2018-09-29 07:11] LABS: ALBUMIN 3.1 g/dL (3.5-5.0); CALCIUM 9.1 mg/dL (8.8-10.2); CREATININE 2.5 mg/dL (0.5-0.9); MAGNESIUM 2.4 mg/dL (1.5-2.7); PHOSPHORUS 4.1 mg/dL (2.7-4.5); POTASSIUM 3.7 mmol/L (3.5-5.1)
--- NOTE | 2018-09-29 07:26 | Diag Imaging Result Doc PS360 ---
EXAM: CHEST-PORTABLE HISTORY: dyspnea TECHNIQUE: Portable chest COMPARISON: 09/27/2018 FINDINGS: Poor inspiratory effort. The heart is not enlarged. Likely scarring or atelectasis in the mid right lung. No pleural effusions identified. IMPRESSION: Poor inspiratory effort, but otherwise stable exam. Electronically signed by Oni Adame 09/29/2018 7:23 AM
[2018-09-29] MEDS: PULMICORT INH SCH ×2 (07:34→19:20)
[2018-09-29] MEDS: ZYLOPRIM PO SCH (09:37)
[2018-09-29] MEDS: BIDIL PO SCH ×3 (09:37→17:04)
[2018-09-29] MEDS: CRESTOR PO SCH (09:37)
[2018-09-29] MEDS: HUMALOG SUBQ SCH ×3 (09:38→17:05)
[2018-09-29] MEDS: COREG PO SCH ×2 (09:38→21:22)
[2018-09-29] MEDS: FLONASE NAS SCH (09:38)
[2018-09-29] MEDS: LANTUS INSULIN SUBQ SCH (09:40)
[2018-09-29] MEDS: NEURONTIN PO SCH ×3 (09:41→17:04)
--- NOTE | 2018-09-29 13:51 | PROGRESS NOTE ---
DATE: 09/29/2018 SUBJECTIVE: She seems to be breathing okay, no big problems there. OBJECTIVE: Vital Signs: Blood pressure is 153/72, heart rate of 71, respiratory rate 18, temperature was 97.6 degrees. Cardiovascular: Regular rate and rhythm. Pulmonary: Bilateral breath sounds clear to auscultation. GI: Soft, nontender, nondistended. Bowel sounds are positive. Extremities: No clubbing or cyanosis. Lymphatic: No peripheral edema. Neurological: She does have a 2+ edema. LABORATORY DATA: I do not have any new data today except for ABG today, pH 7.37, pCO2 49, PO2 97. Creatinine is at 2.5, which has kind of gone up and down. I am not sure if we maybe we had stopped her diuretics. PROBLEM LIST: 1. Volume overload, presumably diastolic. I think they have stopped her diuretics because of her kidney dysfunction, but she still looks like she has got some issues with that. I am going to resume at least a little bit of her Lasix and we will keep an eye on her kidney function. 2. Chronic obstructive pulmonary disease, hypercapnic respiratory failure. We will continue treatment. Continue empiric antibiotics. She is on Zyvox and cefepime. May have a little bit of early pneumonia based on her chest x-ray. 3. Acute on chronic renal failure, so she has bumped up a little bit, which is I think why they stopped diuretics. Her creatinine today is up from yesterday by a little bit, not much, but she is still having some renal dysfunction. I think the BUN increase may also be related to her steroids. We may just give her a little bit of fluid in addition to initiating the diuretic. DISPOSITION: I think she is probably close to going home hopefully in the next [address] Khanna will resume care tomorrow. cc: Jak Palm MD
[2018-09-29] MEDS: NS 500 ML IV SCH ×2 (14:33→23:18)
[2018-09-29] MEDS: LASIX IV SCH (14:34)
[2018-09-29] MEDS ORDERED: TYLENOL PO PRN (16:28)
[2018-09-29] MEDS: ROCEPHIN 1 GM in NS 50 ML IV SCH (17:00)
[2018-09-30] MEDS: SOLU-MEDROL IV SCH ×2 (01:34→15:29)
[2018-09-30] MEDS: DUONEB (A & A) INH SCH ×6 (02:00→22:35)
[2018-09-30] MEDS: ZYVOX PO SCH ×3 (06:15→21:28)
[2018-09-30] MEDS: CARAFATE PO SCH ×3 (06:16→21:28)
[2018-09-30] MEDS: HUMULIN R SUBQ SCH ×4 (06:19→21:29)
[2018-09-30] MEDS: PULMICORT INH SCH ×2 (07:46→19:25)
[2018-09-30 08:26] LABS: HEMATOCRIT 33.5 % (37.0-47.0); HEMOGLOBIN 10.4 g/dL (12.0-16.0); IMM GRAN# 0.03 X1000 (0.0-0.04); IMM GRAN% 0.4 % (0.0-0.5); LYMPH# 0.63 X1000 (1.2-3.4); LYMPH% 8.2 % (20.5-51.1); MCH 26.9 PG (27-31); MCV 86.8 FL (81-99); MONO# 0.42 X1000 (0.11-0.59); MONO% 5.5 % (1.7-9.3); MPV 9.9 FL (7.4-10.4); NEUT# 6.62 X1000 (1.4-6.5); NEUT% 85.9 % (42.2-75.2); PLT 284 X1000 (130-400); RBC 3.86 XMIL (4.2-5.4); RDW 15.1 % (11.5-14.5)
[2018-09-30 08:30] LABS: CALCIUM 8.5 mg/dL (8.8-10.2); CREATININE 2.7 mg/dL (0.5-0.9); POTASSIUM 3.7 mmol/L (3.5-5.1)
[2018-09-30 08:36] LABS: BANDS 2 % (0-1); LYMPHS 10 % (21-51); MONO 4 % (1-9); SEGS 82 % (42-75)
[2018-09-30 08:37] LABS: HYPOCHROM 1+
[2018-09-30] MEDS: BIDIL PO SCH ×3 (08:40→23:32)
[2018-09-30] MEDS: COREG PO SCH ×2 (08:41→21:28)
[2018-09-30] MEDS: LASIX IV SCH ×2 (08:41→11:02)
[2018-09-30] MEDS: NEURONTIN PO SCH ×3 (08:41→21:28)
[2018-09-30] MEDS: CRESTOR PO SCH (08:41)
[2018-09-30] MEDS: HUMALOG SUBQ SCH ×3 (08:44→17:25)
[2018-09-30] MEDS: LANTUS INSULIN SUBQ SCH (08:44)
[2018-09-30] MEDS: FLONASE NAS SCH (08:45)
[2018-09-30] MEDS: NS 500 ML IV SCH (11:02)
--- NOTE | 2018-09-30 12:37 | PROGRESS NOTE ---
DATE: 09/30/2018 SUBJECTIVE: Today Ms. Alvarez refers to be doing fairly okay. Denies any new complaints. Still has some residual shortness of breath, but for most part, this has improved. OBJECTIVE: Vital signs: Blood pressure is 164/71, pulse of 66, respiration is 23, temperature is 98.9 degrees. General: Ms. Alvarez is an 78-year-old elderly female. She is in bed. No distress. HEENT: Mucosa is pink and moist. Anicteric. Acyanotic. Neck: Supple. There is no JVD today. Chest: Air entry is bilaterally reduced. No wheezing. A few crackles posteriorly. Cardiovascular: Regular rate and rhythm. Abdomen: Soft, nontender. Extremities: About 1+ pedal edema with some chronic stasis dermatopathy. Central nervous system: Patient is awake, alert, and oriented. LABORATORY DATA: CBC is reviewed, unremarkable. Chemistry is also reviewed. Creatinine is up to 2.7, BUN is 63. CURRENT MEDICATIONS: Have all been reviewed. ASSESSMENT: 1. Fluid overload on presentation secondary to congestive heart failure with preserved ejection fraction (predominantly right heart failure). 2. Pulmonary hypertension with right ventricular systolic pressure of 60 mmHg. 3. Acute hypoxemic respiratory failure, improved with oxygen therapy. 4. Acute on chronic hypercarbic respiratory failure, improved. 5. Chronic obstructive pulmonary disease in exacerbation is improved. 6. Suspected obstructive sleep apnea with obesity hypoventilation syndrome. 7. Hypertension, controlled. 8. Diabetes mellitus, improved. 9. Right lower lobe pneumonia versus atelectasis. Patient is currently on IV antibiotics. 10. Acute on chronic renal failure. The creatinine continues to creep up. We are going to do urine studies including urine creatinine, urine nitrogen, urine sodium, renal ultrasound and get Nephrology to see Ms Alvarez. After Nephrology evaluation, if no further intervention, I think we will be able to discharge Ms. Alvarez within a day or 2 for her to follow up on outpatient basis. cc: Martell Khanna MD
[2018-09-30] MEDS: ROCEPHIN 1 GM in NS 50 ML IV SCH (15:36)
--- NOTE | 2018-09-30 15:49 | NEPHROLOGY CONSULTATION ---
DATE: 09/30/2018 REASON FOR ADMISSION: Increased work of breathing with lower extremity pain and swelling. REASON FOR CONSULT: Acute kidney injury on chronic kidney disease stage 3. CONSULTING PHYSICIAN: Dr. Khanna. PRIMARY CARE PHYSICIAN: Dr. Bush. HPI: Ms Alvarez is an 78-year-old female with a medical history of chronic kidney disease stage 3 baseline creatinine known at 1.5. She stated that she had found this out earlier this year after coming into the emergency room for previous increased work of breathing. The patient states she has a history of congestive heart failure with a history of high blood pressure. She states that she has no chest pain at this time. Increased work of breathing has improved. No nausea, vomiting or diarrhea. Positive for lower extremity swelling 1+ today. She stated has increased over the last 24 to 48 hours since her Lasix and spironolactone have been held. The patient has been treated on an outpatient basis for cellulitis for the last 6 months. Her swelling had worsened with increased work of breathing in the emergency room she had a V/Q scan done which was negative for any PE. The patient had a CT of the chest performed on 09/25 which showed right lower lobe pneumonia. She required oxygenation in the emergency room. Pulmonology was consulted for COPD exacerbation, she was started on prednisone, prophylactic antibiotics and admitted to the floor for further treatment and observation. During this period of time her creatinine has gone from 1.9 up to 2.7. She has received vancomycin which has been stopped. Her spironolactone and her Lasix have been stopped. She has a renal ultrasound currently pending with urine electrolytes that are currently pending. PAST MEDICAL HISTORY: Chronic kidney disease stage 3B, baseline creatinine of 1.5, diabetes mellitus type 2, hypertension, asthma, mild pulmonary hypertension, previous echocardiogram on September 2017 showed pulmonary systolic reading of 46 mm Hg with an ejection fraction of 70 to 75 percent, normal systolic, she has gout, neuropathy and anemia. PAST SURGICAL HISTORY: Bilateral tubal ligation, sinus surgery, colonoscopy in 2017, left breast lumpectomy. SOCIAL HISTORY: She has family who are attentive to her care, quit smoking 20 years ago. Prior to that she smoked half a pack a day since she was young at 10 years old. Quit alcohol approximately 20 years ago. Denies any illicit drug use. FAMILY HISTORY: No medical history on her mother's side, hypertension, poor perfusion circulation in the legs with her father's side, no end-stage renal disease. ALLERGIES: Listed as no known drug allergies. HOME MEDICATIONS: Lantus, albuterol, allopurinol, Coreg, Neurontin, insulin, losartan, Carafate and torsemide. REVIEW OF SYSTEMS: Review of systems x10 with pertinent positives listed above in the HPI. Her most recent vital signs, temperature 98.9 degrees, blood pressure 164/71, heart rate 66, respirations are 22. She has had 1620 in, she has had only 4 mL recorded out. She states that she has been voiding adequate amount. LABS: Sodium 135, potassium 3.7, chloride 95, CO2 28, BUN 63, creatinine 2.7, glucose 185. White count 7.7, hemoglobin 10.4, hematocrit 33.5 with a platelet count of 284. Anion gap is 12, calcium 8.5, previous phosphorus 4.1 with an albumin of 3.1. Blood cultures are negative. V/Q scan was negative for pulmonary emboli. Chest CT showed right lower lobe pneumonia. PHYSICAL EXAMINATION: This is an 78-year-old female resting quietly in bed. She appears chronically ill, no acute distress.Skin: Warm and dry. HEENT: Normocephalic, atraumatic. Conjunctiva is pale, she has LAUREEN. Mucous membranes are dry. Neck: Supple. Trachea midline. No evidence of JVD in the supine position. Cardiovascular: She is regular rate and rhythm without murmur or gallop. Lungs: Diminished inspiratory effort. Clear to auscultation anterior, equal excursion on room air. Abdomen: Soft, large, round, nontender, positive bowel sounds. Genitourinary: Not inspected. Patient has been voiding. No accurate I's and O's indicated for the last 48 to 72 hours. Integument: No rashes or lesions evident, skin is warm and dry. Neurological: She is alert and oriented x3. ASSESSMENT AND PLAN: 1. Acute kidney injury on chronic kidney disease stage 3. Her baseline creatinine is 1.5 from previous labs. Patient has been receiving large doses of Lasix 40 mg b.i.d. with spironolactone and has been on vancomycin. She did have a chest CT without contrast so she also had a V/Q scan done on her admission on 09/25. Secondary to these findings her Lasix has been held, which we agree with, her spironolactone has been stopped. She is not receiving any Lasix at this time or IV fluids. We will request that she have a renal ultrasound completed, keep strict I's and O's, check urine electrolytes to determine if she is prerenal or intrarenal. We will plan to monitor labs in the a.m. 2. Electrolytes and acid-base balance. These are acceptable. 3. Anemia. This is low but stable. 4. Hypoxemic hypercarbic respiratory failure. Patient has received large doses of Lasix. She has right lower lobe pneumonia. She is on renal dosed antibiotics. Vancomycin has been stopped. Followed by the primary care team. Like to thank you for allowing us to follow with this patient. Dictated by JESSICA Heart for Serge Patricia MD Face to face encounter, data reviewed, discussed with Jc Christensen on 09/30/18. I agree with the above assessment and plan of care. cc: JESSICA Heart MD [facility]
--- NOTE | 2018-09-30 19:27 | Diag Imaging Result Doc PS360 ---
US RENAL 2 (RETROPER) COMPLETE - 09/30/2018 INDICATION: isak/arf TECHNIQUE: COMPARISON: Chest CT 09/25/2018 FINDINGS: There is no hydronephrosis or suspicious renal mass. There are bilateral renal cysts. This measures up to 3.2 x 2.2 cm on the right, and 3.5 x 2.9 cm on the left. Renal sizes are grossly normal. The right kidney measures 9.5 x 4.4 x 5.5 cm. The left kidney measures 10.7 x 5 x 4.3 cm. Urinary bladder contains clear urine and is otherwise normal. IMPRESSION: Bilateral renal cysts. No acute disease. Electronically signed by Hakan Pedersen 09/30/2018 7:24 PM
[2018-09-30 19:28] LABS: UR CREAT RANDOM 68.9 mg/dL (11-20); UR SODIUM < 10 mmoll; UR UREA NITROGEN RANDOM 779 mg/dL
[2018-10-01] MEDS: SOLU-MEDROL IV SCH (03:04)
[2018-10-01] MEDS: DUONEB (A & A) INH SCH ×3 (03:31→10:40)
[2018-10-01] MEDS: CARAFATE PO SCH ×2 (06:18→11:49)
[2018-10-01] MEDS: HUMULIN R SUBQ SCH ×2 (06:20→11:49)
[2018-10-01] MEDS: PULMICORT INH SCH (07:25)
[2018-10-01 08:27] LABS: ALBUMIN 3.2 g/dL (3.5-5.0); CALCIUM 8.6 mg/dL (8.8-10.2); CREATININE 2.6 mg/dL (0.5-0.9); PHOSPHORUS 3.9 mg/dL (2.7-4.5); POTASSIUM 3.6 mmol/L (3.5-5.1)
[2018-10-01] MEDS: HUMALOG SUBQ SCH (08:49)
[2018-10-01] MEDS: FLONASE NAS SCH (08:49)
[2018-10-01] MEDS: LANTUS INSULIN SUBQ SCH (08:50)
[2018-10-01] MEDS: BIDIL PO SCH (08:50)
[2018-10-01] MEDS: NEURONTIN PO SCH (08:50)
[2018-10-01] MEDS: ZYVOX PO SCH (08:50)
[2018-10-01] MEDS: COREG PO SCH (08:50)
[2018-10-01] MEDS: CRESTOR PO SCH (08:50)
[2018-10-01 11:19] VITALS: BP 137/73
--- NOTE | 2018-10-01 13:56 | DISCHARGE SUMMARY ---
ADMISSION DATE: 09/25/2018 DISCHARGE DATE: 10/01/2018 ADMISSION DIAGNOSES: 1. Combined hypercapnic and hypoxic respiratory failure. 2. Chronic lower extremity venous stasis versus cellulitis. 3. Elevated D-dimer. 4. Chronic kidney disease stage 3. 5. Pulmonary hypertension. 6. Type 2 diabetes. 7. Gout. 8. Diabetic neuropathy. DISCHARGE DIAGNOSES: 1. Combined hypercapnic and hypoxic respiratory failure. 2. Chronic lower extremity venous stasis versus cellulitis. 3. Elevated D-dimer. 4. Chronic kidney disease stage 3. 5. Pulmonary hypertension. 6. Type 2 diabetes. 7. Gout. 8. Diabetic neuropathy. 9. Right lower lobe pneumonia versus atelectasis. DIAGNOSTIC PROCEDURES AND FINDINGS: Chest x-ray 09/25/2018: Negative exam. Lung VQ scan 09/25/2018: Normal scan. Echocardiogram 09/25/2018: EF 70%. Trace MR. Pulmonary hypertension. Pulmonary artery systolic pressure [address] 09/25/2018: Minimal atelectasis versus pneumonia in the right lower lobe. Chest x-ray 09/29/2018: Poor inspiratory effort. Bilateral renal ultrasound 09/30/2018: Bilateral renal cysts. CONSULTATIONS: Dr. Mccain with Pulmonary and Dr. Patricia with Nephrology. HOSPITAL COURSE: Ms. Alvarez is an 78-year-old female with multiple medical problems who came in with lower extremity edema, dyspnea, and wheezing. She had also had lower extremity cellulitis and venous stasis that she was being treated by Dr. Bush for in his office 2 weeks prior to admission. She came to the E.R. for evaluation for the shortness of breath and was found to be mildly hypoxic and hypercapnic so she was admitted. Report from Dr. Bush's office was that there was no DVT on recent lower extremity venous Doppler ultrasound and that a VQ scan was negative for PE. She was started on normal medications including breathing treatments and steroids as well as antibiotics. CT chest was done which showed some right lower lobe atelectasis. With the thought that she was having right-sided heart failure we ordered an echocardiogram which did confirm pulmonary hypertension and a normal EF. She was given diuresis and we consulted pulmonary who did recommend an outpatient sleep study for probably sleep apnea. She was noted to have chronic renal insufficiency and on arrival her creatinine was 2 and did bump all the way up to 2.7 during admission and we consulted Dr. Patricia who did not have any urgent recommendations, he did recommend that Lasix and Aldactone be stopped. She is improved from a pulmonary standpoint and is now stable for discharge home. DISCHARGE MEDICATIONS: Albuterol inhaled as needed, allopurinol 300 mg daily, Coreg 0.25 mg b.i.d., Crestor 20 mg daily, Neurontin 300 mg p.o. t.i.d., Lispro Insulin 10 units subcutaneously b.i.d., Carafate 1 g p.o. before meals and at bedtime, Augmentin 875 mg/125 mg one p.o. b.i.d. for 5 days, BiDil one p.o. t.i.d., fluticasone nasal spray as directed, Lantus 35 units subcutaneously in the a.m., and Zyvox 600 mg p.o. every 12 hours for 5 days. DISCHARGE DIET: Diabetic. DISCHARGE ACTIVITY: Resume activity as tolerated. DISPOSITION AND OTHER DISCHARGE INSTRUCTIONS: The patient is discharged home to self-care. She is to follow up with her PCP, Mahnaz Cummings, Dr. Patricia, and Dr. Mccain as directed. She is to continue on medications. Return to the E.R. or call 911 for worsening complaints or concerns. All questions were answered. DISCHARGE TIME: Greater than 35 minutes. Dictated by JESSICA Storey for Martell Khanna MD cc: JESSICA Storey MD Mamoun I. Najjar, MD Reginald D. Gladish, MD Susan Alexander, CRNP I have seen and examined Ms Alvarez today. Daughter and son were at the bedside. She feels better and no complains. Ms Alvarez is clinically stable foe discharge today. I have reconciled her home medications. All discharge instructions and follow up recommendations have been discussed with her and the family members. I agree with the above discharge summary. RKQ MTDHerny
--- NOTE | 2018-10-01 15:25 | NEPHROLOGY PROGRESS NOTE ---
DATE: 10/01/2018 Date Seen: 10/01/2018 Time Seen: 0700 SUBJECTIVE: Ms. Alvarez is sitting up in bed. Her family is at her bedside. She states that she is feeling fine, is concerned about her lower extremity swelling. OBJECTIVE: Her most recent last vital signs: Temperature 97.5 degrees, blood pressure 150/63, heart rate 71 respirations 16. She is on 2 L nasal cannula. Last recorded saturation is 94%. She has had 50 mL in. She has had 0 recorded out. LABORATORY DATA: Her most recent labs: Sodium is 138, potassium 3.6, chloride 98, CO2 28, BUN 67, creatinine 2.6, glucose 178, calcium 8.6, phosphorus 3.9, albumin 3.2. The patient has a previous hemoglobin of 10.4 on the 28. PHYSICAL EXAMINATION: General: This is an 78-year-old female resting quietly in bed. She appears in no acute distress. Skin: Warm and dry. HEENT: Normocephalic, atraumatic. Conjunctiva is pale. She has LAUREEN. Mucous membranes are dry. Neck: Supple. Trachea midline. No evidence of JVD. Cardiovascular: She is regular rate and rhythm. She is without murmur or gallop. Lungs: Clear to auscultation bilateral. Poor inspiratory effort. She remains on O2, equal excursion. Abdomen: Large, round, soft, nontender. Positive bowel sounds. Genitourinary: Not inspected. Patient has been voiding though not recorded. Integumentary: She has no rashes or lesions to the skin. Her skin is warm and dry. Neurological: She is alert and oriented x3. ASSESSMENT AND PLAN: 1. Acute kidney injury on chronic kidney disease stage 3. Baseline creatinine is 1.5. Her BUN and creatinine have stabilized. She is making good urine. Her Lasix remains on hold. Her spironolactone is on hold. We will continue to monitor labs. We have also indicated that she may have pulmonary hypertension along with her pneumonia and have requested that she limit her fluid intake to 2 L in 24 hours and watch her salt intake upon discharge. 2. Electrolytes and acid-base balance. These are acceptable. 3. Anemia. This is low but stable. 4. Respiratory failure patient appears to have right lower lobe pneumonia. She remains on renal dosed antibiotics. I would to thank you for allowing us to follow with this patient. Dictated by JESSICA Heart for Serge Patricia MD Face to face encounter, data reviewed, discussed with Jc Christensen on 10/01/18. I agree with the above assessment and plan of care. cc: JESSICA Heart MD [facility]
== END 2018-10-01 12:41 | disposition home health service (06) | DRG 190 ==
LOC: ED 12:11 → SUATTDRO 17:03 → 3N 17:03
PROVIDERS: ATTEND Internal Medicine
CPT/HCPCS: 71010; 71020; 71045; 71046; 71250; 76770; 78582; 80048; 80053; 80069; 81001; 82306; 82550; 82570; 82607; 82728; 82746; 82805; 82948; 83540; 83550; 83605; 83735; 83880; 84145; 84300; 84484; 84540; 85025; 85379; 85610; 85730; 87040; 87088; 87205; 93005; 93306; 94640; 94660; 94761; 94799; 96365; 96367; 96375; 97162; 97530; 99285; A9270; A9539; A9540; C8929; J0696; J1815; J1940; J2920; J2930; J3370; J7040; Q9957; S0077; XXXXX